=== PATIENT | female | born 1985 | race American Indian/Alaskan Native ===

== ENCOUNTER 2019-11-15 12:55 | Outpatient (CLI) | payer OTHER ==
[2019-11-15] MEDS ORDERED: LACTATED RINGERS 1,000 ML IV SCH (13:00)
[2019-11-15 13:59] LABS: Bilirubin,Urine NEG (Negative); Blood,Urine MOD (Negative); Color,Urine Yellow (Yellow); Mucus,Urine FEW /HPF; Protein,Urine <15 mg/dL mg/dL (Negative); Urobilinogen,Urine < 2.0 mg/dL (<2.0)
--- NOTE | 2019-11-15 14:39 | Ultrasound Report ---
US OB limited, US OB BPP wo non-stress INDICATION / CLINICAL INFORMATION: DECREASED MOVEMENT;BREN[place]. COMPARISON: None available. FINDINGS: Single, viable intrauterine in cephalic presentation. heart rate 142. Amniotic fluid volume is normal, with a fluid index of 24 cm. Biophysical profile: breathing movements: 2 movements: 2 posture and tone: 2 Amniotic fluid volume: 2 Total BPP score: 8/8 IMPRESSION: 1. Single, viable third trimester intrauterine . Biophysical profile score 8/8. Signer Name: Cali Silva MD Signed: 11/15/2019 2:35 PM Workstation Name: [id number]
[2019-11-15 16:04] VITALS: BP 125/60
== END 2019-11-15 15:34 | disposition home or self-care (01) ==
LOC: TRG 12:55
PROVIDERS: ATTEND Obstetrics & Gynecology
DX: O36.8130 Decreased fetal movements, third trimester, not applicable or unspecified (principal); O47.03 False labor before 37 completed weeks of gestation, third trimester; O09.523 Supervision of elderly multigravida, third trimester; O24.414 Gestational diabetes mellitus in pregnancy, insulin controlled; O13.3 Gestational [pregnancy-induced] hypertension without significant proteinuria, third trimester; Z3A.30 30 weeks gestation of pregnancy
CPT/HCPCS: 76815; 76819; 81001; 87086; 96360; 96361; J7120

== ENCOUNTER 2019-12-20 15:17 | Outpatient (CLI) | payer OTHER ==
[2019-12-20 15:44] VITALS: BP 135/63
[2019-12-20] MEDS ORDERED: LACTATED RINGERS 500 ML IV ONE (16:28)
--- NOTE | 2019-12-20 23:50 | Ultrasound Report ---
ULTRASOUND OBSTETRIC LIMITED ULTRASOUND BIOPHYSICAL PROFILE INDICATION / CLINICAL INFORMATION: Grand multipara, questionable SROM. COMPARISON: 11/15/2019 FINDINGS: BREATHING MOVEMENT = 2 GROSS BODY MOVEMENT = 2 TONE = 2 QUALITATIVE AMNIOTIC FLUID VOLUME = 2 TOTAL BIOPHYSICAL SCORE = 8/8 AMNIOTIC FLUID INDEX (cm) = 25.7 PRESENTATION: Cephalic. HEART RATE (beats per minute): 135 ADDITIONAL FINDINGS: None. IMPRESSION: 1. Biophysical Score = 8/8 2. Single viable IUP in a cephalic presentation. Signer Name: Leeanne Reinoso MD Signed: 12/20/2019 11:46 PM Workstation Name: [id number]
== END 2019-12-20 23:28 | disposition home or self-care (01) ==
LOC: TRG 15:17
PROVIDERS: ATTEND Obstetrics & Gynecology
DX: O47.03 False labor before 37 completed weeks of gestation, third trimester (principal); Z3A.35 35 weeks gestation of pregnancy
CPT/HCPCS: 59025; 76815; 76819; 82962